=== PATIENT | female | born 1975 | race Caucasian/White ===

== ENCOUNTER 2022-10-24 09:23 | Day surgery (SDC) | payer OTHER ==
[~2022-10-24] VITALS: Ht 170.2 cm; Wt 104.3 kg
[2022-10-24] MEDS ORDERED: diphenhydrAMINE 50 MG/ML VIAL ONE (10:55)
[2022-10-24] MEDS ORDERED: fentaNYL citrate 0.05 MG/ML VIAL ONE (10:55)
[2022-10-24] MEDS ORDERED: MIDAZOLAM 5 MG/5 ML VIAL ONE (10:55)
[2022-10-24] MEDS ORDERED: LIDOCAINE 2% 100 MG/5 ML UJET TP ONE (10:56)
[2022-10-24] MEDS ORDERED: fentaNYL citrate 0.05 MG/ML VIAL IVP ONE (13:15)
[2022-10-24] MEDS ORDERED: MIDAZOLAM 5 MG/5 ML VIAL IV ONE (13:15)
== END 2022-10-24 12:32 | disposition home or self-care (01) ==
LOC: MDS 09:23 → MMU 09:24 → MDS 12:32
PROVIDERS: ATTEND Internal Medicine Gastroenterology
DX: Z12.11 Encounter for screening for malignant neoplasm of colon (principal); K57.30 Diverticulosis of large intestine without perforation or abscess without bleeding; Z98.0 Intestinal bypass and anastomosis status; Z80.0 Family history of malignant neoplasm of digestive organs; B96.81 Helicobacter pylori [H. pylori] as the cause of diseases classified elsewhere; Z87.891 Personal history of nicotine dependence; Z85.850 Personal history of malignant neoplasm of thyroid; Z20.822 Contact with and (suspected) exposure to COVID-19; Z79.899 Other long term (current) drug therapy
CPT/HCPCS: 45378; 87426; J2250; J3010; J1200